=== PATIENT | male | born 1955 | race Caucasian/White ===

== ENCOUNTER 2018-09-02 15:27 | Outpatient (CLI) | payer OTHER | END 2018-09-02 15:28 | disposition home or self-care (01) | LOC: NAV DTY OP 15:27 | DX: E78.5 Hyperlipidemia, unspecified (principal); R73.01 Impaired fasting glucose; I10 Essential (primary) hypertension; Z68.41 Body mass index [BMI] 40.0-44.9, adult | CPT/HCPCS: 97802 ==

== ENCOUNTER 2021-09-02 07:25 | Emergency (ER) | payer MEDICARE | END 2021-09-02 08:18 | disposition home or self-care (01) | LOC: NAV ERS 07:25 | DX: R10.13 Epigastric pain (principal); R11.0 Nausea; I10 Essential (primary) hypertension | CPT/HCPCS: 99283 ==

== ENCOUNTER 2022-07-04 10:10 | Outpatient (CLI) | payer MEDICARE | END 2022-07-04 10:11 | disposition home or self-care (01) | LOC: NAV RAD 10:10 | PROVIDERS: ATTEND Family Medicine | DX: M54.50 Low back pain, unspecified (principal); M47.816 Spondylosis without myelopathy or radiculopathy, lumbar region | CPT/HCPCS: 72100 ==